=== PATIENT | male | born 2000 | race Hispanic/Latino ===

== ENCOUNTER → 2023-10-16 17:07 | Outpatient (REF) | payer OTHER, SELFPAY ==
[2023-10-17 14:24] LABS: Syphilis/T. pallidum Ab Reflex Negative (Negative)
== END ==
LOC: CLINIC 17:07
PROVIDERS: ATTENDING PHYSICIAN Family Medicine
DX: Z11.1 Encounter for screening for respiratory tuberculosis (principal); Z11.3 Encounter for screening for infections with a predominantly sexual mode of transmission
CPT/HCPCS: 36415; 86780; 87491; 87591

== ENCOUNTER → 2023-10-17 08:57 | Outpatient (REF) | payer OTHER, SELFPAY | LOC: REG 08:57 | PROVIDERS: ATTENDING PHYSICIAN Family Medicine; FAMILY PHYSICIAN Nurse Practitioner Adult Health | DX: Z11.1 Encounter for screening for respiratory tuberculosis (principal) | CPT/HCPCS: 36415; 86480 ==